=== PATIENT | male | born 1940 | race Hispanic/Latino ===

== ENCOUNTER → 2019-04-14 | Outpatient (CLI) | payer OTHER | END | disposition home or self-care (01) | LOC: RAH 08:35 | PROVIDERS: ATTEND Urology | DX: N28.1 Cyst of kidney, acquired (principal); R31.29 Other microscopic hematuria | CPT/HCPCS: 76770 ==

== ENCOUNTER → 2019-06-01 | Outpatient (CLI) | payer OTHER ==
[2019-06-01 10:24] LABS: BASOPHILS % (AUTO) 0.7 % (0.0-5.0); EOSINOPHILS % (AUTO) 0.9 % (0.0-8.0); LYMPHOCYTES % (AUTO) 17.1 % (21.0-51.0); MEAN CORPUSCULAR HEMOGLOBIN 32.5 pg (27.0-33.0); MEAN CORPUSCULAR HGB CONC 34.6 g/dL (32.0-36.0); MEAN CORPUSCULAR VOLUME 94.1 fL (79-99); MONOCYTES % (AUTO) 6.3 % (3.0-13.0); NUCLEATED RED BLOOD CELLS 0.1 % (0.0-0.19); PLATELET COUNT (AUTO) 192 K/uL (130-400); RED BLOOD CELL COUNT(AUTO) 4.47 MIL/uL (4.50-6.20); RED CELL DISTRIBUTION WIDTH 13.3 % (11.0-15.5); WHITE BLOOD COUNT (AUTO) 8.3 K/uL (4.8-10.8)
[2019-06-01 10:31] LABS: CREATININE 0.9 mg/dL (0.5-1.5)
== END | disposition home or self-care (01) ==
LOC: LAB 09:28
PROVIDERS: ATTEND Urology
DX: Q61.01 Congenital single renal cyst (principal)
CPT/HCPCS: 36415; 80048; 85025

== ENCOUNTER → 2019-06-03 | Outpatient (CLI) | payer OTHER ==
[~2019-06-03] MED LIST: IOHEXOL-350 75 ML VIAL IV ONE
== END | disposition home or self-care (01) ==
LOC: RAH 08:13
PROVIDERS: ATTEND Urology
DX: Q61.01 Congenital single renal cyst (principal)
CPT/HCPCS: 74178; Q9967